=== PATIENT | female | born 1965 | race Caucasian/White ===

== ENCOUNTER → 2020-08-16 | Outpatient (CLI) | payer OTHER ==
--- NOTE | 2020-08-16 13:42 | RAD ---
INDICATION: Reason: BACK PAIN, LEFT KNEE / Spl. Instructions: / History: COMPARISON: None. IMPRESSION: Lumbar spine: 3 views obtained. Degenerative changes are identified including osteophyte formation at the vertebral body endplates of severe at L4-5 where there is some irregularity of the endplates as well. Facet hypertrophy is seen as well. There is lucency seen at the inferior endplate of L4. This could be related to the patient's degenerative changes as well as overlap of structures. This is not seen on the other images therefore less likely to be nondisplaced fracture. Left knee: 3 views obtained. Degenerative changes with osteophyte formation. No acute fracture or dislocation. Small knee joint effusion and edema at Hoffa's fat pad.. Electronically signed by: Quang Taylor MD (08/16/2020 1:39 PM) [id number]
== END ==
LOC: DXRAD 11:51
PROVIDERS: ATTEND Anesthesiology Pain Medicine
DX: M17.12 Unilateral primary osteoarthritis, left knee (principal); M25.78 Osteophyte, vertebrae; M25.462 Effusion, left knee; M47.816 Spondylosis without myelopathy or radiculopathy, lumbar region
CPT/HCPCS: 72100; 73562

== ENCOUNTER 2021-11-03 12:59 | Emergency (ER) | payer BC, OTHER ==
[~2021-11-03] VITALS: Ht 165.1 cm; Wt 110.9 kg
[2021-11-03] MEDS ORDERED: INDOMETHACIN 25 MG CAPSULE PO ONE (13:45)
[2021-11-03] MEDS ORDERED: HYDROcodone/APAP 5/325MG 1 TAB TABLET PO ONE (13:45)
[2021-11-03] MEDS ORDERED: INDO50CA15 PO (13:47)
[2021-11-03] MEDS ORDERED: HYDR-2155 PO (13:47)
--- NOTE | 2021-11-03 13:49 | PHYS DOC ---
Past History Past Surgical History: Appendectomy, Cholecystectomy, Hysterectomy Additional Past Surgical Histo: SPINAL FUSION (DEJAN HASSAN APRN) General Adult EDM: Chief Complaint: TOE PROBLEM HPI: HPI: Patient is a 56-year-old female who presents to the emergency department today for pain to her right great toe with redness and swelling. Patient reports that she has a history of gout. She is on a uric acid lowering drug but cannot think of the name for the last 2 weeks. She is currently on prednisone for the last 2 days but reports that her primary care provider Dr. Denise told her to follow- up in the office for a steroid injection into her joint but she showed up to her primary care provider's office and the doctor did not show up. Patient rates her pain 6 out of 10. Patient reports that her pain is worse with movement and weightbearing. Patient states that she is able to bear weight and ambulate. She denies any injuries, nausea, vomiting, fevers. (DEJAN HASSAN APRN) Review of Systems: Review of Systems: Constitutional: negative unless reported in HPI Eyes: negative unless reported in HPI HENT: negative unless reported in HPI Respiratory: negative unless reported in HPI Cardiovascular: negative unless reported in HPI GI: negative unless reported in HPI : negative unless reported in HPI Musculoskeletal: negative unless reported in HPI Integument: negative unless reported in HPI Neurologic: negative unless reported in HPI Endocrine: negative unless reported in HPI Lymphatic: negative unless reported in HPI Psychiatric: negative unless reported in HPI (DEJAN HASSAN APRN) Allergies: Allergies: Allergies Coded Allergies Type Severity Reaction Last Updated Verified No Known Drug Allergies 11/03/21 No (DEJAN HASSAN APRN) Physical Exam: PE: Constitutional: Well developed, well nourished, no acute distress, non-toxic appearance. [] HENT: Normocephalic, atraumatic, bilateral external ears normal, oropharynx moist, no oral exudates, nose normal. [] Eyes: PERRL, EOMI, conjunctiva normal, no discharge. [] Neck: Normal range of motion, no stridor Cardiovascular: Normal peripheral perfusion Lungs & Thorax: Normal work of breathing, no tachypnea Abdomen: Obese and soft Skin: Warm, dry, no erythema, no rash. [] Back: Normal range of motion Extremities: No tenderness, no cyanosis, no clubbing, ROM intact, no edema. [] Right great toe: Redness/warmth noted to the MTP joint of right great toe, mild swelling noted, no obvious deformity, no open wounds or ecchymosis, full extension, limited flexion due to pain, neuro intact Neurologic: Alert and oriented X 3, normal motor function, normal sensory function, no focal deficits noted. [] Psychologic: Affect normal, judgement normal, mood normal. [] (DEJAN HASSAN APRN) Current Patient Data: Vital Signs: Vital Signs Date Time Temp Pulse Resp B/P (MAP) Pulse Ox O2 Delivery O2 Flow Rate FiO2 11/03/21 13:07 98.4 98 18 125/88 (100) 97 Room Air (DEJAN HASSAN APRN) EKG: EKG: [] (DEJAN HASSAN APRN) Radiology/Procedures: Radiology/Procedures: [] (DEJAN HASSAN APRN) Heart Score: C/O Chest Pain: N/A Risk Factors: Risk Factors: DM, Current or recent (<one month) smoker, HTN, HLP, family history of CAD, obesity. Risk Scores: Score 0 - 3: 2.5% MACE over next 6 weeks - Discharge Home Score 4 - 6: 20.3% MACE over next 6 weeks - Admit for Clinical Observation Score 7 - 10: 72.7% MACE over next 6 weeks - Early Invasive Strategies (DEJAN HASSAN APRN) Course & Med Decision Making: Course & Med Decision Making Pertinent Labs and Imaging studies reviewed. (See chart for details) [] Patient presents to the emergency department today for pain control. Patient has redness, warmth and swelling as well as pain noted to the MTP joint of her right great toe. Patient reports that she takes a uric acid lowering medication is on prednisone for the last 2 days for her pain control. Patient reports that she requires additional pain management. Patient was given a dose of indomethacin and hydrocodone. Patient will be discharged home with indomethacin prescription as well as [place]. Patient advised to follow-up with her primary care provider. I discussed with patient all findings and diagnostic testing as well as the need to follow-up with PCP for further evaluation and treatment or return to the ER if any new or worsening symptoms. Strict return precautions were also discussed at length. Patient voiced understanding and agreement with the plan. Patient is hemodynamically stable at the time of disposition. (DEJAN HASSAN APRN) Course & Med Decision Making I was the Attending physician on the above date of service of this patient. This patient was evaluated, examined, treated, and dispositioned from the emergency department by the mid-level practitioner. I reviewed plan of care with WORKS MANAGER and agreed to plan as stated prior to discharge Electronically signed, Roxana Isbell DO (ROXANA ISBELL DO) Marcella Disclaimer: Marcella Disclaimer: This electronic medical record was generated, in whole or in part, using a voice recognition dictation system. (DEJAN HASSAN APRN) Departure Departure: Impression: Primary Impression: Toe pain Qualified Codes: M79.674 - Pain in right toe(s) Additional Impression: Gout Qualified Codes: M10.9 - Gout, unspecified Disposition: HOME / SELF CARE / HOMELESS Condition: GOOD Referrals: BARRY DENISE (PCP) Patient Instructions: Gout Additional Instructions: You were seen in the emergency department today for pain management due to your gout. You were treated with a NSAID and pain medication. Continue taking your prednisone. You are being discharged home with these medications. Do not take any additional NSAIDs with this medication. [place] is a medication that you will be prescribed with which is an opiate. This medication contains hydrocodone and Tylenol, do not take any additional Tylenol with this medication. This medication may cause drowsiness so do not take need to be alert, driving a vehicle or with alcohol. Continue taking your uric acid lowering medication. Follow-up with your primary care provider on Saturday regarding your ER visit. Return to the emergency department if you develop worsening of your pain, any injuries, intractable nausea vomiting, high fevers refractory to treatment, inability to bear weight or ambulate. Scripts Hydrocodone Bit/Acetaminophen (HYDROCODONE-APAP 5-325 ) 1 Each Tablet 1 TAB PO PRN Q6HRS PRN for PAIN for 2 Days, #8 TAB 0 Refills Prov: DEJAN HASSAN APRN 11/03/21 Indomethacin (INDOMETHACIN) 50 Mg Capsule 1 CAP PO TID for gout for 5 Days, #15 CAP 0 Refills with food Prov: DEJAN HASSAN APRN 11/03/21 DEJAN HASSAN APRN Nov 03, 2021 13:49 ROXANA ISBELL DO Nov 04, 2021 07:56
[2021-11-03 14:30] VITALS: BP 132/80
== END 2021-11-03 14:38 | disposition home or self-care (01) ==
LOC: ER 12:59
DX: M10.9 Gout, unspecified (principal); M79.674 Pain in right toe(s)
CPT/HCPCS: 99283